=== PATIENT | male | born 1975 | race Caucasian/White ===

== ENCOUNTER 2016-07-16 04:57 | Emergency (ER) | payer OTHER | END 2016-07-16 07:46 | disposition home or self-care (01) | LOC: FER 04:57 | DX: S80.01XA Contusion of right knee, initial encounter (principal); Z87.828 Personal history of other (healed) physical injury and trauma; Z87.891 Personal history of nicotine dependence; W08.XXXA Fall from other furniture, initial encounter | CPT/HCPCS: 72170; 73552; 73590; J1170; J2405 ==